=== PATIENT | male | born 1955 | race Caucasian/White ===

== ENCOUNTER 2021-01-25 07:50 | Outpatient (CLI) | payer MEDICARE, MEDICAID ==
[2021-01-25] VITALS (8 sets, daily range): BP systolic 132–153; BP diastolic 61–75
[~2021-01-25] VITALS: Ht 172.7 cm; Wt 88.6 kg
[2021-01-25] MEDS ORDERED: regadenoson 0.4mg/5ml syringe IV ONE (09:00)
[2021-01-25] MEDS ORDERED: nitroGLYCERIN 0.4mg SUBLingual tab SL PRN (09:00)
[2021-01-25] MEDS ORDERED: aminophylline 250mg/10ml inj. IV PRN (09:00)
[2021-01-25] MEDS ORDERED: normal saline 500ml IV soln 500 ML IV ONE (09:00)
== END 2021-01-25 23:59 | disposition home or self-care (01) ==
LOC: RAD 07:50
PROVIDERS: ATTEND Internal Medicine Cardiovascular Disease
DX: R94.30 Abnormal result of cardiovascular function study, unspecified (principal)
CPT/HCPCS: 78452; 93017; A9500; J0280; J2785; J7040

== ENCOUNTER 2021-04-05 06:19 | Day surgery (SDC) | payer MEDICARE, MEDICAID ==
[2021-03-28 12:00] LABS: BASOPHILS % (AUTO) 0.5 % (0-1); EOSINOPHILS # (AUTO) 0.1 X10'3 (0-0.9); EOSINOPHILS % (AUTO) 1.2 % (0-6); LYMPHOCYTES # (AUTO) 3.2 X10'3 (1.1-4.8); LYMPHOCYTES % (AUTO) 32.9 % (21-51); MEAN CORPUSCULAR HEMOGLOBIN 30.2 PG (27.0-31.0); MEAN CORPUSCULAR HGB CONC 33.9 g/dL (33.0-36.5); MEAN CORPUSCULAR VOLUME 89.2 FL (78-98); MEAN PLATELET VOLUME 7.7 FL (7.4-10.4); MONOCYTES # (AUTO) 0.7 X10'3 (0-0.9); MONOCYTES % (AUTO) 7.4 % (2-12); NEUTROPHILS # (AUTO) 5.6 X10'3 (1.8-7.7); PRE OP HEMATOCRIT 42.8 % (42.0-52.0); PRE OP HEMOGLOBIN 14.5 g/dL (14.0-17.9); PRE OP PLATELET COUNT 248 X10'3 (140-440); RED BLOOD COUNT 4.79 X10'6 (4.70-6.10)
[2021-03-28 13:11] LABS: ALBUMIN/GLOBULIN RATIO 0.9 (1.1-1.5); ALKALINE PHOSPHATASE 87 IU/L (46-116); BLOOD UREA NITROGEN 19 MG/DL (7-18); BUN/CREATININE RATIO 18.8 (5.4-32.0); CALCIUM 9.1 MG/DL (8.5-10.1); CHLORIDE 107 MMOL/L (99-107); CREATININE 1.01 MG/DL (0.60-1.10); PRE OP ALT 22 U/L (30-65); PRE OP ANION GAP 9 (8-16); PRE OP AST 15 U/L (10-37); PRE OP BILIRUB, TOTAL 0.3 MG/DL (0.0-1.0); PRE OP GLUCOSE 89 MG/DL (70-104); PRE OP POTASSIUM 4.3 MMOL/L (3.4-5.1); PRE OP SODIUM 139 MMOL/L (135-145); TOTAL CARBON DIOXIDE 23.2 MMOL/L (24-32); TOTAL PROTEIN 8.3 G/DL (6.4-8.2); eGFR 74 ML/MIN
[2021-04-05] VITALS (8 sets, daily range): BP systolic 90–143; BP diastolic 52–88
[~2021-04-05] VITALS: Ht 172.7 cm; Wt 87.5 kg
[~2021-04-05 06:19] MED LIST: BENA40TA73 PO; cefazolin/dext.iso 2gm/100ml IV ONE; famotidine 20mg tablet PO ONE; ringers solution, lacted 1,000 ML IV SCH; vancomycin 1,500 MG in NS 300ml IV soln IV ONE
[2021-04-05] MEDS ORDERED: BUPIVAcaine/PF 2.5 mg/ml (0.25%) 30ml vial ONE (07:26)
[2021-04-05] MEDS ORDERED: triamcinolone acetonide 40mg/ml inj ONE (07:26)
[2021-04-05] MEDS ORDERED: labetalol 20mg/4ml (5mg/ml) syringe IV PRN (08:20)
[2021-04-05] MEDS ORDERED: morphine 2 MG/ML inj. syringe IV PRN (08:20)
[2021-04-05] MEDS ORDERED: morphine 4 MG/ML inj SYRINge IV PRN (08:20)
[2021-04-05] MEDS ORDERED: ringers solution, lacted 1,000 ML IV SCH (08:20)
[2021-04-05] MEDS ORDERED: ondansetron/PF 4mg/2ml inj IV PRN (08:20)
[2021-04-05] MEDS ORDERED: hydrALAZINE 20mg/ml inj. IV PRN (08:20)
[2021-04-05] MEDS ORDERED: fentaNYL/PF 50MCG/1 ML 2ML syringe IV PRN ×2 (08:20)
[2021-04-05] MEDS ORDERED: sevoflurane 250ml liquid IH ONE (08:53)
[2021-04-05] MEDS ORDERED: midazolam 1 mg/ML 2ml injection ONE (09:00)
[2021-04-05] MEDS ORDERED: fentaNYL/PF 50MCG/1 ML 2ML syringe ONE (09:00)
[2021-04-05] MEDS ORDERED: propofol inj 20 ML IV ONE (09:05)
[2021-04-05] MEDS ORDERED: LIDOcaine 2% (20mg/ml) 5ml vial ONE (09:05)
[2021-04-05] MEDS ORDERED: dexamethasone sod phosphate 4mg/ml inj. ONE (09:05)
[2021-04-05] MEDS ORDERED: ondansetron/PF 4mg/2ml inj ONE (09:05)
[2021-04-05] MEDS ORDERED: acetaminophen 1,000mg/100ml IV 100 ML IV ONE (09:06)
[2021-04-05] MEDS ORDERED: hydrALAZINE 20mg/ml inj. IV ONE (09:27)
--- NOTE | 2021-04-05 10:04 | NUR ---
Received from OR via [facility] , accompanied by Anesthesiologist LINNETTE and report given by Anesthesiolgist. PATIENT WITH BIAS WRAP TO LEFT KNEE THAT IS CDI. + DP PRESENT. 10L MASK ON WITH 100% SATRATIONS. 20G PIV IN RIGHT UE RUNNING LR AT 100. Addendum: 04/05/21 at 1013 by Desmond Hernandez RN, RN Amended: Links added.
--- NOTE | 2021-04-05 10:54 | NUR ---
ALL DISCHARGE CRITERIA HAS BEEN MET. VSS, PAIN AT A TOLERABLE LEVEL, VOIDING AND ABLE TO SAFELY AMBULATE AND TRANSFER SELF. IV TAKEN OUT WITHOUT ANY COMPLICATIONS. ALL DISCHARGE INSTRUCTIONS COVERED WITH PATIENT AND ALL QUESTIONS ANSWERED. PATIENT TAKEN OUT VIA WHEELCHAIR TO PERSONAL VEHICLE WHERE FAMILY/FRIEND DROVE PATIENT HOME. Addendum: 04/05/21 at 1109 by Desmond Hernandez RN, RN Amended: Links added.
== END 2021-04-05 10:54 | disposition home or self-care (01) ==
LOC: PAS 06:19
PROVIDERS: ATTEND Orthopaedic Surgery
DX: S83.272A Complex tear of lateral meniscus, current injury, left knee, initial encounter (principal); S83.232A Complex tear of medial meniscus, current injury, left knee, initial encounter; M94.262 Chondromalacia, left knee; M17.0 Bilateral primary osteoarthritis of knee; I10 Essential (primary) hypertension; K21.9 Gastro-esophageal reflux disease without esophagitis; M10.9 Gout, unspecified; E66.8 Other obesity; Z68.32 Body mass index [BMI] 32.0-32.9, adult; Z79.899 Other long term (current) drug therapy; Z88.8 Allergy status to other drugs, medicaments and biological substances; Z87.891 Personal history of nicotine dependence; Z86.19 Personal history of other infectious and parasitic diseases; Z20.822 Contact with and (suspected) exposure to COVID-19; X58.XXXA Exposure to other specified factors, initial encounter; Y93.89 Activity, other specified; Y92.89 Other specified places as the place of occurrence of the external cause; Y99.8 Other external cause status
CPT/HCPCS: 29873; 29879; 29880; 36415; 80053; 82948; 85025; J0131; J0360; J1100; J2001; J2250; J2405; J2704; J3010; J3301; J3370; J3490; J7040; U0003; U0005; Z7506; Z7508; Z7512; A4215; A4618; A6250; A6449; A7000; J7120

== ENCOUNTER 2022-10-14 14:20 | Day surgery (SDC) | payer BC, MEDICAID ==
[2022-10-14] VITALS (7 sets, daily range): BP systolic 110–167; BP diastolic 62–70
[~2022-10-14] VITALS: Ht 172.7 cm; Wt 99.8 kg
[~2022-10-14 14:20] MED LIST changes: -cefazolin/dext.iso 2gm/100ml IV ONE; -famotidine 20mg tablet PO ONE; -ringers solution, lacted 1,000 ML IV SCH; -vancomycin 1,500 MG in NS 300ml IV soln IV ONE
[2022-10-14] MEDS ORDERED: LORazepam 0.5 MG tablet PO PRN (14:55)
[2022-10-14] MEDS ORDERED: normal saline 1,000 ML IV SCH (14:55)
[2022-10-14] MEDS ORDERED: diphenhydrAMINE 25mg capsule PO PRN (14:55)
[2022-10-14] MEDS ORDERED: heparin 1,000 UNITS/NS 500ml 500 ML ONE ×2 (15:11→17:48)
[2022-10-14] MEDS ORDERED: iohexol 350MG/ML 100ml bottle IV ONE (15:11)
[2022-10-14] MEDS ORDERED: LIDOcaine 1% 30ml preserv. free vial ONE (15:12)
[2022-10-14] MEDS ORDERED: SILD50TA PO (15:36)
[2022-10-14] MEDS ORDERED: TEST5GEL19 TOP (15:36)
[2022-10-14] MEDS ORDERED: APIX5TAB3 PO (15:36)
[2022-10-14] MEDS ORDERED: EVOL140P3 SQ (15:36)
[2022-10-14] MEDS ORDERED: CLOP75TA34 PO (15:36)
[2022-10-14] MEDS ORDERED: CARV6.2555 PO (15:36)
[2022-10-14] MEDS ORDERED: CHLO25TA10 PO (15:36)
[2022-10-14] MEDS ORDERED: AMLO10TA13 PO (15:36)
[2022-10-14] MEDS ORDERED: midazolam 1 mg/ML 2ml injection ONE (16:49)
[2022-10-14] MEDS ORDERED: fentaNYL/PF 50MCG/1 ML 2ML syringe ONE (16:49)
[2022-10-14] MEDS ORDERED: heparin 1,000unit/ml 10ml vial 10 ML ONE (17:28)
== END 2022-10-14 20:05 | disposition home or self-care (01) ==
LOC: SSTAY O 14:20
PROVIDERS: ATTEND Student in an Organized Health Care Education/Training Program
DX: I70.213 Atherosclerosis of native arteries of extremities with intermittent claudication, bilateral legs (principal); I25.10 Atherosclerotic heart disease of native coronary artery without angina pectoris; I25.2 Old myocardial infarction; I10 Essential (primary) hypertension; M10.9 Gout, unspecified; M19.90 Unspecified osteoarthritis, unspecified site; D68.00 Von Willebrand disease, unspecified; E78.5 Hyperlipidemia, unspecified; I48.91 Unspecified atrial fibrillation; Z79.01 Long term (current) use of anticoagulants; Z79.899 Other long term (current) drug therapy; Z86.19 Personal history of other infectious and parasitic diseases; Z86.718 Personal history of other venous thrombosis and embolism
CPT/HCPCS: 37226; 75625; 75716; 93005; 99152; 99153; C1725; C1760; C1769; C1876; C1894; J1644; J2250; J3010; J3490; J7030; Q0163; Q9967; 36140; A4615; A6258

== ENCOUNTER 2023-05-23 08:15 | Outpatient (CLI) | payer BC, MEDICAID ==
[~2023-05-23 08:15] MED LIST changes: +AMLO10TA13 PO; +APIX5TAB3 PO; -BENA40TA73 PO; +CARV6.2555 PO; +CHLO25TA10 PO; +CLOP75TA34 PO; +EVOL140P3 SQ; +SILD50TA PO; +TEST5GEL19 TOP
[2023-05-23 08:41] LABS: BASOPHILS % (AUTO) 0.6 % (0-1); EOSINOPHILS # (AUTO) 0.1 X10'3 (0-0.9); EOSINOPHILS % (AUTO) 1.4 % (0-6); HEMATOCRIT 41.6 % (42.0-52.0); HEMOGLOBIN 13.7 g/dl (14.0-17.9); LYMPHOCYTES # (AUTO) 1.5 X10'3 (1.1-4.8); LYMPHOCYTES % (AUTO) 19.8 % (21-51); MEAN CORPUSCULAR HEMOGLOBIN 29.7 PG (27.0-31.0); MEAN CORPUSCULAR HGB CONC 32.9 g/dL (33.0-36.5); MEAN CORPUSCULAR VOLUME 90.5 FL (78-98); MEAN PLATELET VOLUME 7.2 FL (7.4-10.4); MONOCYTES # (AUTO) 0.7 X10'3 (0-0.9); NEUTROPHILS # (AUTO) 5.3 X10'3 (1.8-7.7); NEUTROPHILS % (AUTO) 69.2 % (42-75); PLATELET COUNT 253 X10'3 (140-440); RED CELL DISTRIBUTION WIDTH 14.9 % (11.5-14.5); WHITE BLOOD COUNT 7.6 X10'3 (4.5-11.0)
[2023-05-23 08:55] LABS: ANION GAP 9 (8-16); BLOOD UREA NITROGEN 22 MG/DL (7-18); BUN/CREATININE RATIO 17.5 (10.0-20.0); CALCIUM 9.2 MG/DL (8.5-10.1); CHLORIDE 108 MMOL/L (99-107); CREATININE 1.26 MG/DL (0.60-1.10); GLUCOSE 101 MG/DL (70-104); POTASSIUM 4.2 MMOL/L (3.5-5.1); SODIUM 141 MMOL/L (135-145); TOTAL CARBON DIOXIDE 23.7 MMOL/L (24-32); eGFR 57 ML/MIN
[2023-05-23 08:56] LABS: APTT 30 SECONDS (22-32); INR 1.1 INR; PROTHROMBIN TIME 11.8 SECONDS (9.0-12.0)
== END 2023-05-23 23:59 | disposition home or self-care (01) ==
LOC: LAB 08:15 → EDSTATUS 05-27 14:00
PROVIDERS: ATTEND Student in an Organized Health Care Education/Training Program
DX: Z01.810 Encounter for preprocedural cardiovascular examination (principal); U07.1 COVID-19; I48.91 Unspecified atrial fibrillation; I21.19 ST elevation (STEMI) myocardial infarction involving other coronary artery of inferior wall; I11.9 Hypertensive heart disease without heart failure; I65.23 Occlusion and stenosis of bilateral carotid arteries; R42 Dizziness and giddiness; R55 Syncope and collapse; I70.293 Other atherosclerosis of native arteries of extremities, bilateral legs; I70.0 Atherosclerosis of aorta; I25.10 Atherosclerotic heart disease of native coronary artery without angina pectoris; I63.49 Cerebral infarction due to embolism of other cerebral artery; Z79.01 Long term (current) use of anticoagulants; R53.83 Other fatigue; I70.213 Atherosclerosis of native arteries of extremities with intermittent claudication, bilateral legs
CPT/HCPCS: 36415; 80048; 85025; 85610; 85730

== ENCOUNTER 2024-12-01 09:10 | Emergency (ER) | payer BC, MEDICAID ==
[~2024-12-01] VITALS: Ht 172.7 cm; Wt 95.5 kg
[2024-12-01] MEDS: normal saline 1000ml 1,000 ML IV ONE (10:34)
[2024-12-01 13:01] VITALS: BP 110/78; PULSE 74; RESP 18; TEMP 98.8; O2SAT 98
== END 2024-12-01 13:03 | disposition home or self-care (01) ==
LOC: ER 09:10
DX: Z00.8 Encounter for other general examination (principal); Z87.891 Personal history of nicotine dependence; Z88.6 Allergy status to analgesic agent
CPT/HCPCS: 71045; 96360; 99283; J7030

== ENCOUNTER 2025-03-01 10:18 | Emergency (ER) | payer BC, MEDICAID ==
[~2025-03-01] VITALS: Ht 172.7 cm; Wt 86.4 kg
[2025-03-01 10:25] VITALS: BP 185/69; PULSE 61; O2SAT 97
--- NOTE | 2025-03-01 10:31 | Physician Documentation ---
History of Present Illness ~ Chief Complaint: Shoulder pain Stated Complaint: SHOULDER/BACK PAIN Time Seen by MD: 10:44 HPI 69-year-old male presents with one day of right shoulder pain. He states that he slept on right shoulder because he has to secondary to using a CPAP. And has pain with range of motion in his right arm Day of Onset: Mar 01, 2025 Tetanus within 5 years?: Yes Medication Reconciliation Allergies: Coded Allergies: aspirin (Verified Allergy, Unknown, 12/01/24) Scheduled Amlodipine Besylate (Amlodipine Besylate), 1 TAB PO DAILY, (Reported) Apixaban (Eliquis), 1 TAB PO BID, (Reported) Carvedilol (Carvedilol), 1 TAB PO BID, (Reported) Chlorthalidone (Chlorthalidone), 1 TAB PO DAILY, (Reported) Clopidogrel Bisulfate (Clopidogrel), 1 TAB PO DAILY, (Reported) Evolocumab (Repatha Sureclick), 1 APPLIC SQ Q7D, (Reported) Sildenafil Citrate* (Viagra*), 1 TAB PO UD, (Reported) Testosterone (Testosterone), 1 APPLIC TOP DAILY, (Reported) Scheduled PRN Hydrocodone Bit/Acetaminophen 5/325 MG ([place] 5/325 MG), 1 TAB PO Q6H PRN for pain Physical Exam Vital Signs: Temperature: 98.2, Source: Temporal, Heart Rate: 61, Respiratory Rate: 15, BP: 185/69, Pulse Oximetry: 97, Weight: 86.400 Physical Exam General: Alert, no apparent distress. Gastrointestinal: Soft, nontender, nondistended. Bowels sounds present. Extremities: Normal range of motion, no deformity. negative Drop-arm test point tenderness via palpation in the right thoracic and scapular region Neurologic: Oriented x4. Psychiatric: Normal mood and affect. Skin: Normal color, warm and dry. No edema, no ecchymosis. Progress Results/Orders Results/Orders Orders - CLINTON MAHONEY [employer]IST Shoulder, Complete (Min 2 Vws) (03/01/25 10:29) Completed Orders - CLINTON MAHONEY [employer]IST Shoulder, Complete (Min 2 Vws) (03/01/25 10:29) Morphine 4mg/Ml Inj. (Morphine Inj.) (03/01/25 11:50) Ketorolac Trometh 30mg/Ml Vial (Toradol (03/01/25 11:50) Medications Received in ER Medications (Trade) Dose Ordered Sig/Sanam Route PRN Reason Start Time Stop Time Status Last Admin Dose Admin (morphine inj.) 4 mg ONCE ONCE IM 03/01/25 11:50 03/01/25 11:51 DC 03/01/25 11:56 4 MG Vital Signs 03/01/25 03/01/25 03/01/25 10:25 11:56 12:07 Temp 98.2 98.2 Pulse 61 Resp 15 16 B/P (MAP) 185/69 Pulse Ox 97 Medical Decision Making Findings Patient presents with a suspected scapular/thoracic sprain likely secondary to poor sleeping position. treated pain while in the ED when prescribed him some [place] for home Departure Disposition: HOME / SELF CARE / HOMELESS Impression: Primary Impression: Shoulder pain Additional Impressions: Strain of shoulder Tendinitis of shoulder Condition: Stable Discharge Instructions: Shoulder Pain, [id number] Referrals: NO PRIMARY CARE PROVIDER (PCP) Prescriptions Hydrocodone Bit/Acetaminophen 5/325 MG ([place] 5/325 MG) 5 Mg/325 Mg Tablet 1 TAB PO Q6H PRN for pain, #14 TAB Prov: CLINTON MAHONEY [employer] 03/01/25 Education Educated: Patient Educated regarding: diagnosis Signature Scribe Signature: f Attestation: Scribed for Clinton Mahoney Fitness Coach by Clinton Mahoney - MIHIR . 03/01/25 18:06 CLINTON MAHONEY NP Mar 01, 2025 10:31
--- NOTE | 2025-03-01 10:57 | RADIOLOGY REPORT ---
CLINICAL INDICATION: RT.Shoulder Pain TECHNIQUE: 2 radiographic views of the right shoulder were obtained. Comparison: None FINDINGS/IMPRESSION: There is no evidence of acute fracture or dislocation. The visualized joint space is well maintained. The alignment is anatomical. There is no radiopaque foreign body.
[2025-03-01 11:56] VITALS: RESP 16
[2025-03-01] MEDS: morphine 4 MG/ML inj SYRINge IM ONE (11:56)
[2025-03-01] MEDS ORDERED: HYDR-3965 PO (11:56)
[2025-03-01] MEDS: ketorolac trometh 30MG/ML vial 30 MG/ML VIAL IM ONE (11:56)
[2025-03-01 12:07] VITALS: TEMP 98.2
== END 2025-03-01 12:08 | disposition home or self-care (01) ==
LOC: ER 10:18
DX: S46.811A Strain of other muscles, fascia and tendons at shoulder and upper arm level, right arm, initial encounter (principal); M77.8 Other enthesopathies, not elsewhere classified; M25.511 Pain in right shoulder; Z88.6 Allergy status to analgesic agent; Z79.899 Other long term (current) drug therapy; X58.XXXA Exposure to other specified factors, initial encounter; Y93.89 Activity, other specified; Y92.89 Other specified places as the place of occurrence of the external cause; Y99.8 Other external cause status
CPT/HCPCS: 73030; 96372; 99283; J2270; A4565